=== PATIENT | male | born 1950 | race Caucasian/White ===

== ENCOUNTER → 2017-08-20 | Outpatient (CLI) | payer OTHER ==
[2017-08-20 18:02] LABS: BASO % 0.6 %; BASO ABS # 0.04 K/uL (0-0.2); EOS % 7.1 %; EOS ABS # 0.48 K/uL (0-0.5); HEMATOCRIT 42.3 % (42-52); HEMOGLOBIN 13.4 g/dL (14.0-18.0); IG# 0.01 K/uL (0.00-0.02); LYMPH % 24.5 %; LYMPH ABS # 1.65 K/uL (1.2-3.4); MEAN CELL VOLUME 82.9 fL (80-100); MEAN CORPUSCULAR HEMOGLOBIN 26.3 pg (25-34); MEAN CORPUSCULAR HGB CONC 31.7 g/dl (32-36); MEAN PLATELET VOLUME 8.6 fL (7.4-10.4); MONO % 7.7 %; MONO ABS # 0.52 K/uL (0.11-0.59); NEUT ABS # 4.04 K/uL (1.4-6.5); PLATELET COUNT 181 K/uL (130-400); RED CELL DISTRIBUTION WIDTH CV 17.7 % (11.5-14.5); RED CELL DISTRIBUTION WIDTH SD 54.1 fL (36.4-46.3); WHITE BLOOD COUNT 6.74 K/uL (4.8-10.8)
[2017-08-20 18:14] LABS: ALBUMIN 3.9 gm/dl (3.4-5.0); ALT/SGPT 20 U/L (12-78); AST/SGOT 22 U/L (15-37); BLOOD UREA NITROGEN 14 mg/dl (7-18); CARBON DIOXIDE 30 mmol/L (21-32); CREATININE 1.35 mg/dl (0.60-1.40); GLUCOSE 92 mg/dl (70-99); POTASSIUM 4.1 mmol/L (3.5-5.1); SODIUM 138 mmol/L (136-145)
[2017-08-20 18:21] LABS: ALKALINE PHOSPHATASE 81 U/L (45-117); TRANSFERRIN 286 mg/dl (200-360)
== END | disposition home or self-care (01) ==
LOC: C.LABMFLN 16:20
PROVIDERS: ATTEND Family Medicine
DX: D64.9 Anemia, unspecified (principal); C18.9 Malignant neoplasm of colon, unspecified; E03.9 Hypothyroidism, unspecified